=== PATIENT | female | born 1970 | race African-American/Black ===

== ENCOUNTER 2017-02-11 09:59 | Emergency (ER) | payer MEDICAID, OTHER ==
[~2017-02-11] VITALS: Ht 165.1 cm; Wt 86.0 kg
[~2017-02-11 09:59] MED LIST: LEVOTHYROXINE
[2017-02-11] MEDS ORDERED: SODIUM CHLORIDE 0.9% 1,000 ML IV ONE (10:25)
[2017-02-11 10:57] LABS: HEMATOCRIT. 44.9 % (36.0-48.0); HEMOGLOBIN. 14.8 g/dL (12.0-16.0); MEAN CORPUSCULAR HEMOGLOBIN 28.9 pg (28.0-32.0); MEAN CORPUSCULAR HGB CONC 32.9 g/dL (31.0-37.0); MEAN PLATELET VOLUME 8.5 fl (7.4-10.4); PLATELET 236 x1000/uL (130-400); RED BLOOD CELL COUNT 5.11 mill/uL (4.2-5.4); RED CELL DISTRIBUTION WIDTH 13.5 % (11.6-14.6); WHITE BLOOD COUNT 16.4 x1000/uL (4.5-11.0)
[2017-02-11 10:59] LABS: DIFFERENTIAL COMMENT 1
[2017-02-11 11:06] LABS: INR 1.1; PROTHROMBIN TIME 11.4 sec
[2017-02-11 11:08] LABS: ALBUMIN 3.7 g/dL (3.4-5.0); ANION GAP 13; CALCIUM 8.8 mg/dL (8.5-10.1); CARBON DIOXIDE 27 mEq/L (21-32); CHLORIDE 103 mEq/L (98-107); INDEX HEMOLYSI 1 (1-3); INDEX ICTERIC 1 (1-4); INDEX LIPEMIC 1 (1-3); UREA NITROGEN BLOOD 14 mg/dL (7-21)
[2017-02-11 11:12] LABS: ALANINE AMINOTRANSFERASE 14 IU/L (13-61); eGFR > 60 mL/min (>60)
[2017-02-11 11:15] LABS: TROPONIN I < 0.02 ng/mL (0.00-0.04)
[2017-02-11 11:42] LABS: PLATELET ESTIMATE NORMAL
[2017-02-11 12:15] LABS: GLUCOSE URINE NEGATIVE (NEGATIVE); KETONES URINE TRACE (NEGATIVE); LEUKOCYTE ESTERASE URINE NEGATIVE (NEGATIVE); NITRITE URINE NEGATIVE (NEGATIVE); OCCULT BLOOD URINE NEGATIVE (NEGATIVE); PROTEIN URINE TRACE (NEGATIVE); SPECIFIC GRAVITY URINE 1.034 (1.005-1.030)
[2017-02-11 12:31] LABS: CLARITY URINE CLEAR (CLEAR); COLOR URINE AMBER (YELLOW)
[2017-02-11] MEDS ORDERED: ONDANSETRON HCL 4MG/2ML VIAL IV ONE (12:45)
[2017-02-11] MEDS ORDERED: KETOROLAC 30MG/ML VIAL IV ONE (13:00)
[2017-02-11 13:03] LABS: BACTERIA URINE NONE SEEN; RBC URINE 0-2 /hpf (0-2); SQUAMOUS EPITHELIAL CELL URINE FEW /lpf (RARE/1+); WBC URINE 0-2 /hpf (0-2)
[2017-02-11 16:14] VITALS: BP 121/59
[2017-02-12] MEDS ORDERED: AMOX-405 PO (19:02)
== END 2017-02-11 16:24 | disposition home or self-care (01) ==
LOC: ER 11:27
DX: R07.89 Other chest pain (principal); R00.0 Tachycardia, unspecified; J45.909 Unspecified asthma, uncomplicated
CPT/HCPCS: 36415; 71010; 80053; 81001; 81025; 84443; 84484; 85025; 85610; 93005; 96361; 96374; 96375; 99285; J1885; J2405; J7030; Z7610

== ENCOUNTER 2017-02-12 18:03 | Emergency (ER) | payer MEDICAID ==
[~2017-02-12] VITALS: Ht 167.6 cm; Wt 83.0 kg
[2017-02-12] MEDS ORDERED: AMOX-405 PO (19:02)
[2017-02-13] MEDS ORDERED: DIPHENHYDRAMINE 50MG/ML VIAL IM ONE (00:15)
[2017-02-13] MEDS ORDERED: METHYLPREDNISOLONE SOD SUCC 125 MG/2 ML VIAL IV ONE (00:30)
[2017-02-13] MEDS ORDERED: METHYLPREDNISOLONE SOD SUCC 125 MG/2 ML VIAL IM ONE (00:30)
[2017-02-13 01:03] VITALS: BP 110/78
== END 2017-02-13 01:31 | disposition home or self-care (01) ==
LOC: ER 18:03
DX: T36.0X5A Adverse effect of penicillins, initial encounter (principal); B37.2 Candidiasis of skin and nail; N76.0 Acute vaginitis; J02.9 Acute pharyngitis, unspecified; K21.9 Gastro-esophageal reflux disease without esophagitis; J45.909 Unspecified asthma, uncomplicated; E03.9 Hypothyroidism, unspecified; E07.9 Disorder of thyroid, unspecified; R21 Rash and other nonspecific skin eruption
CPT/HCPCS: 96372; 99284; J1200; J2930

== ENCOUNTER 2017-06-25 12:22 | Inpatient (IN) | payer MEDICAID ==
[~2017-06-25] VITALS: Ht 165.1 cm; Wt 83.0 kg
[~2017-06-25 12:22] MED LIST changes: +AMOX-405 PO
[2017-06-25] MEDS ORDERED: ASPIRIN 81MG TABLET PO STA (13:34)
[2017-06-25] MEDS ORDERED: NITROGLYCERIN OINT 1GM/INCH UDPKT TD STA (13:34)
[2017-06-25 14:10] LABS: BASOPHILS % 0.4 % (0.0-2.0); EOSINOPHILS % 2.1 % (0.0-5.0); HEMATOCRIT. 36.7 % (36.0-48.0); HEMOGLOBIN. 12.4 g/dL (12.0-16.0); LYMPHOCYTES % 46.8 % (20.0-50.0); MEAN CORPUSCULAR HEMOGLOBIN 29.7 pg (28.0-32.0); MEAN CORPUSCULAR VOLUME 87.6 fL (81.0-99.0); MEAN PLATELET VOLUME 8.3 fl (7.4-10.4); MONOCYTES % 7.2 % (2.0-8.0); NEUTROPHILS % 43.5 % (40.0-76.0); PLATELET 215 x1000/uL (130-400); RED BLOOD CELL COUNT 4.19 mill/uL (4.2-5.4); RED CELL DISTRIBUTION WIDTH 13.3 % (11.6-14.6)
[2017-06-25 14:21] LABS: D-DIMER 0.25 mg/L FEU (<0.50); PARTIAL THROMBOPLASTIN TIME 27.6 sec (23.4-31.0); PROTHROMBIN TIME 10.1 sec (9.4-11.6)
[2017-06-25] MEDS ORDERED: SODIUM CHLORIDE 0.9% 10ML VIAL ONE (14:22)
[2017-06-25] MEDS ORDERED: IOHEXOL-350 100 ML BOTTLE ONE (14:22)
[2017-06-25 14:23] LABS: CARBON DIOXIDE 29 mEq/L (21-32); CHLORIDE 106 mEq/L (98-107)
[2017-06-25 14:27] LABS: TROPONIN I < 0.02 ng/mL (0.00-0.04)
[2017-06-25 15:16] LABS: CLARITY URINE CLEAR (CLEAR); COLOR URINE YELLOW (YELLOW); GLUCOSE URINE NEGATIVE (NEGATIVE); KETONES URINE NEGATIVE (NEGATIVE); LEUKOCYTE ESTERASE URINE NEGATIVE (NEGATIVE); NITRITE URINE NEGATIVE (NEGATIVE); OCCULT BLOOD URINE NEGATIVE (NEGATIVE); PROTEIN URINE NEGATIVE (NEGATIVE); SPECIFIC GRAVITY URINE 1.017 (1.005-1.030); UROBILINOGEN URINE 0.2 E.U./dL (0.2-1.0)
[2017-06-25 18:02] VITALS: BP 125/77
[2017-06-25] MEDS ORDERED: FLUO40CA8 PO (18:24)
[2017-06-25] MEDS ORDERED: LEVO112T7 PO (18:25)
[2017-06-25] MEDS ORDERED: ALBU18HF2 IH (18:27)
[2017-06-25] MEDS ORDERED: IPRATROPIUM/ALBUTEROL 0.5-3(2.5)MG/3ML NEB INH PRN (19:00)
[2017-06-25] MEDS ORDERED: LORAZEPAM 2MG/ML CPJ IV PRN (19:00)
[2017-06-25] MEDS ORDERED: ONDANSETRON HCL 4MG/2ML VIAL IV PRN (19:00)
[2017-06-25] MEDS ORDERED: ACETAMINOPHEN 325MG TABLET PO PRN (19:00)
[2017-06-25] MEDS ORDERED: MAGNESIUM/ALUMINUM HYDROXIDE/SIMETHICONE 30ML UDC PO PRN (19:00)
[2017-06-25] MEDS: ENOXAPARIN 40MG/0.4ML SYR SUBCUT SCH (20:52)
[2017-06-25 22:41] LABS: CREATINE KINASE 48 IU/L (26-192); TROPONIN I < 0.02 ng/mL (0.00-0.04)
[2017-06-26] VITALS (24 sets, daily range): BP systolic 78–145; BP diastolic 44–76
[2017-06-26] MEDS: LEVOTHYROXINE SODIUM 112MCG TABLET PO SCH (06:56)
[2017-06-26 07:41] LABS: CREATINE KINASE 40 IU/L (26-192); CREATINE KINASE MB FRACTION < 0.5 ng/mL (0.5-3.6); TROPONIN I < 0.02 ng/mL (0.00-0.04)
[2017-06-26 09:57] LABS: *AMPHETAMINES SCREEN URINE NEGATIVE (NEGATIVE); *BARBITURATES SCREEN URINE NEGATIVE (NEGATIVE); *BENZODIAZEPINES SCREEN URINE NEGATIVE (NEGATIVE); *COCAINE SCREEN URINE NEGATIVE (NEGATIVE); CANNABINOID URINE SCREEN NEGATIVE (NEGATIVE); METHADONE URINE SCREEN NEGATIVE (NEGATIVE); OPIATES URINE SCREEN NEGATIVE (NEGATIVE); PHENCYCLIDINE URINE SCREEN NEGATIVE (NEGATIVE)
[2017-06-26] MEDS ORDERED: SODIUM CHLORIDE 0.9% 1,000 ML IV SCH (10:00)
[2017-06-26] MEDS ORDERED: REGADENOSON 0.4 MG/5 ML IV ONE (10:45)
[2017-06-26 11:11] LABS: BASOPHILS % 0.9 % (0.0-2.0); EOSINOPHILS % 2.2 % (0.0-5.0); HEMATOCRIT. 35.9 % (36.0-48.0); HEMOGLOBIN. 12.3 g/dL (12.0-16.0); LYMPHOCYTES % 50.2 % (20.0-50.0); MEAN CORPUSCULAR VOLUME 87.5 fL (81.0-99.0); MONOCYTES % 5.5 % (2.0-8.0); NEUTROPHILS % 41.2 % (40.0-76.0); PLATELET 212 x1000/uL (130-400); RED BLOOD CELL COUNT 4.11 mill/uL (4.2-5.4); RED CELL DISTRIBUTION WIDTH 13.3 % (11.6-14.6)
[2017-06-26 11:15] LABS: CHLORIDE 106 mEq/L (98-107)
[2017-06-26] MEDS: ASPIRIN 81MG EC TABLET PO SCH (11:19)
[2017-06-26 11:23] LABS: CARBON DIOXIDE 26 mEq/L (21-32)
[2017-06-26] MEDS ORDERED: FLUOXETINE HCL 20MG CAPSULE PO SCH (17:15)
[2017-06-26] MEDS: ENOXAPARIN 40MG/0.4ML SYR SUBCUT SCH (20:50)
[2017-06-27] VITALS (7 sets, daily range): BP systolic 104–143; BP diastolic 53–87
[2017-06-27] MEDS: LEVOTHYROXINE SODIUM 112MCG TABLET PO SCH (06:26)
[2017-06-27 07:28] LABS: CARBON DIOXIDE 28 mEq/L (21-32); CHLORIDE 107 mEq/L (98-107); HDL CHOLESTEROL 58 mg/dL (40-59); LDL CHOLESTEROL 134 mg/dL (5-100)
[2017-06-27 07:30] LABS: BASOPHILS % 0.4 % (0.0-2.0); HEMATOCRIT. 38.5 % (36.0-48.0); LYMPHOCYTES % 48.6 % (20.0-50.0); MEAN CORPUSCULAR HEMOGLOBIN 29.7 pg (28.0-32.0); MEAN PLATELET VOLUME 8.3 fl (7.4-10.4); MONOCYTES % 6.2 % (2.0-8.0); NEUTROPHILS % 42.8 % (40.0-76.0); PLATELET 223 x1000/uL (130-400); RED BLOOD CELL COUNT 4.37 mill/uL (4.2-5.4); RED CELL DISTRIBUTION WIDTH 13.4 % (11.6-14.6)
[2017-06-27 07:36] LABS: TROPONIN I < 0.02 ng/mL (0.00-0.04)
[2017-06-27] MEDS ORDERED: REGADENOSON 0.4 MG/5 ML IV ONE (07:57)
[2017-06-27] MEDS: ASPIRIN 81MG EC TABLET PO SCH (09:05)
[2017-06-27] MEDS ORDERED: FLUOXETINE HCL 20MG CAPSULE PO SCH (21:00)
[2017-06-27] MEDS ORDERED: ATORVASTATIN CALCIUM 10MG TABLET PO SCH (21:00)
== END 2017-06-27 14:35 | disposition home or self-care (01) | DRG 243 ==
LOC: ER 15:33 → ENRESERV 16:02 → 3WST 16:11 → EDBEDREQ 16:17
PROVIDERS: ADMIT Internal Medicine Nephrology; ATTEND Internal Medicine Nephrology
DX: K21.9 Gastro-esophageal reflux disease without esophagitis (principal); M41.9 Scoliosis, unspecified; I10 Essential (primary) hypertension; E03.9 Hypothyroidism, unspecified; E78.1 Pure hyperglyceridemia; E78.5 Hyperlipidemia, unspecified; F41.9 Anxiety disorder, unspecified; F43.9 Reaction to severe stress, unspecified; H54.7 Unspecified visual loss; J45.909 Unspecified asthma, uncomplicated; Z88.8 Allergy status to other drugs, medicaments and biological substances; Z79.899 Other long term (current) drug therapy; Z82.49 Family history of ischemic heart disease and other diseases of the circulatory system
CPT/HCPCS: 36415; 70450; 70551; 71010; 71275; 78452; 80048; 80053; 80061; 80305; 81003; 81025; 82550; 82553; 83880; 84443; 84484; 85025; 85379; 85610; 85730; 93005; 93017; 93306; 97161; 99285; A4216; A9500; J1650; J2060; J2785; J7030; Q9967

== ENCOUNTER 2018-07-19 23:44 | Emergency (ER) | payer MEDICAID ==
[~2018-07-19] VITALS: Ht 165.1 cm; Wt 85.0 kg
[~2018-07-19 23:44] MED LIST changes: +ALBU18HF2 IH; -AMOX-405 PO; +FLUO40CA8 PO; +LEVO112T7 PO; -LEVOTHYROXINE
[2018-07-20] MEDS ORDERED: CEPHALEXIN 500MG CAPSULE PO ONE (06:45)
[2018-07-20 07:13] VITALS: BP 121/69
== END 2018-07-20 07:14 | disposition home or self-care (01) ==
LOC: ER 23:44
DX: S00.86XA Insect bite (nonvenomous) of other part of head, initial encounter (principal); L03.818 Cellulitis of other sites; S70.361A Insect bite (nonvenomous), right thigh, initial encounter; S40.862A Insect bite (nonvenomous) of left upper arm, initial encounter; S20.362A Insect bite (nonvenomous) of left front wall of thorax, initial encounter; M19.90 Unspecified osteoarthritis, unspecified site; J45.909 Unspecified asthma, uncomplicated; F31.9 Bipolar disorder, unspecified; K21.9 Gastro-esophageal reflux disease without esophagitis; E05.90 Thyrotoxicosis, unspecified without thyrotoxic crisis or storm; M41.9 Scoliosis, unspecified; Z88.6 Allergy status to analgesic agent; W57.XXXA Bitten or stung by nonvenomous insect and other nonvenomous arthropods, initial encounter; Y93.89 Activity, other specified; Y92.018 Other place in single-family (private) house as the place of occurrence of the external cause
CPT/HCPCS: 99283; Z7610

== ENCOUNTER 2019-02-08 05:30 | Emergency (ER) | payer MEDICAID ==
[~2019-02-08] VITALS: Ht 167.6 cm; Wt 87.0 kg
[2019-02-08] MEDS ORDERED: ASPIRIN 81MG TABLET PO ONE (07:00)
[2019-02-08 07:10] LABS: CLARITY URINE CLOUDY (CLEAR); COLOR URINE YELLOW (YELLOW); KETONES URINE 1+ (NEGATIVE); LEUKOCYTE ESTERASE URINE NEGATIVE (NEGATIVE); NITRITE URINE NEGATIVE (NEGATIVE); OCCULT BLOOD URINE TRACE (NEGATIVE); PH URINE 5.5 (4.5-8.0); PROTEIN URINE NEGATIVE (NEGATIVE); SPECIFIC GRAVITY URINE 1.019 (1.005-1.030)
[2019-02-08 07:14] LABS: CHLORIDE 107 mEq/L (98-107)
[2019-02-08 07:28] LABS: BASOPHILS % 0.5 % (0.0-2.0); HEMATOCRIT. 40.4 % (36.0-48.0); HEMOGLOBIN. 13.5 g/dL (12.0-16.0); MEAN CORPUSCULAR HEMOGLOBIN 29.7 pg (28.0-32.0); MEAN CORPUSCULAR VOLUME 88.5 fL (81.0-99.0); MEAN PLATELET VOLUME 8.9 fl (7.4-10.4); MONOCYTES % 6.1 % (2.0-8.0); NEUTROPHILS % 52.4 % (40.0-76.0); PLATELET 243 x1000/uL (130-400); RED BLOOD CELL COUNT 4.56 mill/uL (4.2-5.4); RED CELL DISTRIBUTION WIDTH 13.6 % (11.6-14.6)
[2019-02-08 08:25] VITALS: BP 118/82
== END 2019-02-08 08:40 | disposition home or self-care (01) ==
LOC: ER 05:30
DX: R07.89 Other chest pain (principal); J45.909 Unspecified asthma, uncomplicated; K21.9 Gastro-esophageal reflux disease without esophagitis; F31.9 Bipolar disorder, unspecified; F20.9 Schizophrenia, unspecified; M41.9 Scoliosis, unspecified; M19.90 Unspecified osteoarthritis, unspecified site; Z88.6 Allergy status to analgesic agent
CPT/HCPCS: 36415; 71045; 80053; 81003; 81025; 84484; 85025; 93005; 99284; Z7610